=== PATIENT | male | born 1970 | race Caucasian/White ===

== ENCOUNTER 2022-10-16 09:31 | Outpatient (CLI) | payer BC | END 2022-10-16 09:32 | disposition home or self-care (01) | LOC: CSHMRI 09:31 | PROVIDERS: ATTEND Urology | DX: N28.89 Other specified disorders of kidney and ureter (principal); N28.1 Cyst of kidney, acquired; R16.1 Splenomegaly, not elsewhere classified | CPT/HCPCS: 74183 ==